=== PATIENT | male | born 1940 | race Two or more races ===

== ENCOUNTER 2024-05-23 14:49 | Outpatient (RCR) | payer OTHER, MEDICAID, SELFPAY | END 2024-06-01 23:59 | disposition home or self-care (01) | LOC: SCTC 14:49 | PROVIDERS: Referring Provider Nurse Practitioner Family; Visit Provider Nurse Practitioner Family | DX: C18.2 Malignant neoplasm of ascending colon (principal); N40.0 Benign prostatic hyperplasia without lower urinary tract symptoms; Z90.79 Acquired absence of other genital organ(s); G20.A1 Parkinson's disease without dyskinesia, without mention of fluctuations; R91.1 Solitary pulmonary nodule | CPT/HCPCS: 99212; G0463 ==

== ENCOUNTER → 2024-05-23 | Outpatient (CLI) | payer OTHER, MEDICAID, SELFPAY ==
[2024-05-23 10:25] LABS: Basophils % (Auto) 1 % (0-2.5); Eosinophils # (Auto) 0.1 Thou/mm3 (0.0-0.5); Eosinophils % (Auto) 1 % (0-10); Hematocrit 46.9 % (41.0-53.0); Hemoglobin 15.7 g/dL (13.5-16.0); Immature Granulocytes % (Auto) 0 % (0-0); Immature Granulocytes Auto 0.02 Thou/mm3 (0.00-0.00); Lymphocytes # (Auto) 1.8 Thou/mm3 (1.0-4.8); Lymphocytes % (Auto) 34 % (10-50); Mean Corpuscular HGB Conc 33.5 g/dl (31.0-37.0); Mean Corpuscular Hemoglobin 32.2 pg (25.0-35.0); Mean Corpuscular Volume 96 fL (80-100); Monocytes # (Auto) 0.5 Thou/mm3 (0.0-0.8); Monocytes % (Auto) 9 % (0-12); Neutrophils # (Auto) 2.9 Thou/mm3 (1.8-7.7); Neutrophils % (Auto) 54 % (37-80); Nucleated Red Blood Cell % 0 /100 WBC (0); Platelet Count 180 Thou/mm3 (140-440); RDW Standard Deviation 46.1 fL (35.1-43.9); Red Blood Count 4.87 Miln/mm3 (4.50-5.90); White Blood Count 5.3 Thou/mm3 (3.8-10.6)
[2024-05-23 10:54] LABS: Prostate Specific Antigen 0.91 ng/mL (0-4.00)
[2024-05-23 11:02] LABS: Alanine Aminotransferase 16 U/L (10-49); Albumin, Serum 4.6 gm/dL (3.4-4.8); Albumin/Globulin Ratio 1.8 (1.2-2.2); Alkaline Phosphatase 74 U/L (46-116); Anion Gap 8 (7-16); Aspartate Amino Transferase 22 U/L (0-34); BUN/Creatinine Ratio 16 Ratio (12-20); Bilirubin,Total 0.8 mg/dL (0.3-1.2); Blood Urea Nitrogen 18 mg/dL (9-23); Calcium 9.7 mg/dL (8.3-10.6); Calcium (Corrected) 9.7 mg/dL (8.5-10.1); Carbon Dioxide 30.1 mMol/L (20.0-31.0); Chloride 101 mMol/L (98-107); Creatinine (Component) 1.1 mg/dL (0.6-1.3); Globulin 2.5 gm/dL (2.3-3.5); Glucose 159 mg/dL (74-106); Osmolality,Calculated 282 (275-295); Potassium 4.5 mMol/L (3.4-5.1); Sodium 139 mMol/L (136-145); Total Protein 7.1 gm/dL (5.7-8.2); eGFR > 60 See Note
== END | disposition home or self-care (01) ==
LOC: SCTO 08:47
PROVIDERS: PCP Family Medicine; Referring Provider Nurse Practitioner Family; Visit Provider Nurse Practitioner Family
DX: C18.2 Malignant neoplasm of ascending colon (principal)
CPT/HCPCS: 36415; 80053; 84153; 85025

== ENCOUNTER → 2024-05-30 | Outpatient (CLI) | payer OTHER, MEDICAID, SELFPAY ==
--- NOTE | 2024-05-30 15:15 | XR_ITS ---
Examination: CT chest, without intravenous contrast. Sagittal and coronal 2-D reconstructions. Exam date and time: May 30, 2024 1529 hours Comparison November 15, 2023 INDICATIONS: Diagnosis malignant neoplasm ascending colon, CT chest November 15, 2023 2 mm pulmonary nodule right upper lobe 2 mm pulmonary nodule left upper lobe 6 mm pulmonary nodule lingular segment CTDI:vol (mGy) 18.8 DLP: (mGycm) 622 Technique: Multiple 3.0 mm axial sections of the chest to been obtained. Bone and lung density settings are obtained. Sagittal and coronal 2-D reconstructions have been obtained. Low dose protocols were performed. One or more of the following dose reduction techniques were used; automated exposure control, adjustment of the mA and/or KV according to patient size, use of iterative reconstruction technique. Findings: AP dimension ascending thoracic aorta 4.1 cm Pulmonary artery segments are not enlarged No paratracheal tracheobronchial or bronchopulmonary adenopathy 3 mm pulmonary nodule left upper lobe Calcified granuloma 4 mm left lower lobe Stable bleb of the anterior right lung 41 mm No interval pneumonia or pulmonary edema Trace pericardial thickening No visualized liver or splenic lesion No gallstones No pancreatic or adrenal mass IMPRESSION: Mild aneurysmal dilatation ascending thoracic aorta No new pulmonary nodules No pneumonia or pulmonary edema
== END | disposition home or self-care (01) ==
PROVIDERS: Referring Provider Nurse Practitioner Family; Visit Provider Nurse Practitioner Family
DX: I71.21 Aneurysm of the ascending aorta, without rupture (principal); C18.2 Malignant neoplasm of ascending colon
CPT/HCPCS: 71250

== ENCOUNTER 2024-06-25 14:45 | Outpatient (RCR) | payer OTHER, MEDICAID, SELFPAY | END 2024-06-29 23:59 | disposition home or self-care (01) | LOC: SCTC 14:45 | PROVIDERS: PCP Family Medicine; Referring Provider Family Medicine; Visit Provider Internal Medicine Hematology & Oncology | DX: R91.8 Other nonspecific abnormal finding of lung field (principal); N40.0 Benign prostatic hyperplasia without lower urinary tract symptoms; G20.A1 Parkinson's disease without dyskinesia, without mention of fluctuations; Z85.038 Personal history of other malignant neoplasm of large intestine; Z90.79 Acquired absence of other genital organ(s) | CPT/HCPCS: 99212; G0463 ==

== ENCOUNTER → 2024-09-19 | Outpatient (CLI) | payer OTHER, MEDICAID, SELFPAY ==
[2024-09-19 16:48] LABS: Basophils % (Auto) 0 % (0-2.5); Eosinophils # (Auto) 0.1 Thou/mm3 (0.0-0.5); Eosinophils % (Auto) 2 % (0-10); Hematocrit 44.9 % (41.0-53.0); Hemoglobin 15.2 g/dL (13.5-16.0); Immature Granulocytes % (Auto) 0 % (0-0); Immature Granulocytes Auto 0.02 Thou/mm3 (0.00-0.00); Lymphocytes # (Auto) 1.6 Thou/mm3 (1.0-4.8); Lymphocytes % (Auto) 29 % (10-50); Mean Corpuscular HGB Conc 33.9 g/dl (31.0-37.0); Mean Corpuscular Hemoglobin 33.1 pg (25.0-35.0); Mean Corpuscular Volume 98 fL (80-100); Monocytes # (Auto) 0.5 Thou/mm3 (0.0-0.8); Monocytes % (Auto) 8 % (0-12); Neutrophils # (Auto) 3.3 Thou/mm3 (1.8-7.7); Neutrophils % (Auto) 60 % (37-80); Nucleated Red Blood Cell % 0 /100 WBC (0); Platelet Count 215 Thou/mm3 (140-440); RDW Standard Deviation 45.8 fL (35.1-43.9); Red Blood Count 4.59 Miln/mm3 (4.50-5.90); White Blood Count 5.5 Thou/mm3 (3.8-10.6)
[2024-09-19 17:08] LABS: Alanine Aminotransferase 15 U/L (10-49); Albumin, Serum 4.3 gm/dL (3.4-4.8); Albumin/Globulin Ratio 1.7 (1.2-2.2); Alkaline Phosphatase 73 U/L (46-116); Anion Gap 11 (7-16); Aspartate Amino Transferase 19 U/L (0-34); BUN/Creatinine Ratio 15 Ratio (12-20); Bilirubin,Total 0.6 mg/dL (0.3-1.2); Blood Urea Nitrogen 16 mg/dL (9-23); Calcium 8.9 mg/dL (8.3-10.6); Calcium (Corrected) 8.9 mg/dL (8.5-10.1); Carbon Dioxide 28.8 mMol/L (20.0-31.0); Chloride 101 mMol/L (98-107); Creatinine (Component) 1.1 mg/dL (0.6-1.3); Globulin 2.5 gm/dL (2.3-3.5); Glucose 178 mg/dL (74-106); Osmolality,Calculated 286 (275-295); Potassium 4.2 mMol/L (3.4-5.1); Sodium 141 mMol/L (136-145); Total Protein 6.8 gm/dL (5.7-8.2); eGFR > 60 See Note
[2024-09-19 17:09] LABS: Carcinoembryonic Antigen 1.6 ng/mL (0.0-5.0)
== END | disposition home or self-care (01) ==
LOC: SCTO 15:06
PROVIDERS: PCP Family Medicine; Referring Provider Nurse Practitioner Family; Visit Provider Nurse Practitioner Family
DX: C18.2 Malignant neoplasm of ascending colon (principal)
CPT/HCPCS: 36415; 80053; 82378; 85025

== ENCOUNTER 2024-09-20 14:51 | Outpatient (RCR) | payer OTHER, MEDICAID, SELFPAY ==
--- NOTE | 2024-09-26 01:36 | CTCFLWUP_ITS ---
Patient: VLADIMIR SZYMANSKI : 1940 Page 5 of 5 FOLLOW UP NOTE DATE OF SERVICE: 09/20/2024 NAME: VLADIMIR SZYMANSKI ACCOUNT: [id number] : 1940 AGE: 84 INTERVAL HISTORY: Patient is doing well with no new complaints CT of chest that was done for surveillance due to history of pulmonary nodules showed no new pulmonary nodules, 05/30/2024. Labs from 05/23/2024 show PSA 0.91, PSA was recommended by previous CT chest abdomen and pelvis/prostate with irregular contour. Patient denies any concerns or complaints. Patient reports good appetite and energy levels. Patient denies cough chest pain weight loss fever, hematuria, any difficulty with urinating. 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 Right distal thigh mass. Aspiration biopsy no evidence of adenocarcinoma (06/28/2018). Prostatomegaly status post robotic simple prostatectomy (10/23/2018). Pathology showed benign prostatic hyperplasia. History of Parkinson's disease. 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 Patient reportedly had colonoscopy done by Dr. Cruz. The report is not available to me at this time. CT scan showed a soft tissue density at the posterior margin of the cecum measuring 5.1 x 4.2 cm in size without any evidence of bowel obstruction. On September 16, 2017 patient underwent right hemicolectomy and ileotransverse colostomy. Pathology specimen showed a 3.5 x 3.0 x 1.0 well differentiated adenocarcinoma of the right colon invading through the muscularis propria into pericolonic tissue. Lymphovascular invasion was present. No perineural invasion was identified. One tumor deposit was noted. 2 out of 25 lymph nodes were positive for metastatic disease. It was staged as PT 3, N1B disease. His posto perative course was uneventful. He is referred to medical oncology for further care. 12/16/2017: Patient had a PET CT scan which showed a focal 18 mm hypermetabolic focus in the rectum. 12/19/2017: CT scan of the chest abdomen and pelvis with IV contrast showed a masslike area 4 cm in size in the mid transverse colon. 02/14/2018: He has recovered very well from the surgery. He is going on vacation today. He will be back in about 3 weeks. 05/11/2018: He decided not to have adjuvant chemo 06/28/2018: Patient had CT-guided percutaneous biopsy/aspiration of soft tissue mass in the right thigh. Pathology did not show any evidence of adenocarcinoma. 10/11/2018: Patient had prostatectomy done at [facility] by Dr. Ren. Pathology showed BPH. 05/08/2018: CEA 1.5. 07/11/2019: CEA 2.2 08/07/2019: CT scan of the chest abdomen and pelvis with contrast? 12/27/2019: CEA 1.8. 05/14/2020: CEA 1.9. 10/13/2020: CT scan of the chest abdomen and pelvis with IV contrast did not show any evidence of metastatic disease 05/19/2021: CEA 1.7. 10/12/2021: CEA 1.3. 03/22/2022: CEA 1.2. 09/07/2022: CT scan of the chest abdomen and pelvis with IV contrast 04/06/2023: CEA 1.3. 05/03/2023: CEA 2.3 05/09/2023: CT of chest abdomen and pelvis with contrast 10/13/2023: CEA 1.3, PSA 0.80 10/14/2023: CT chest with no contrast 01/16/2024: CEA 1.9, PSA 1.05 OTHER MEDICAL HISTORY/CONDITIONS: Parkinson's Diabetes Hypertension FAMILY HISTORY: SOCIAL HISTORY: MEDICATIONS: 1. atorvastatin - 10 mg 1 tab Daily 2. furosemide - 40 mg 1 tab Daily 3. Jardiance - 25 mg 1 tab Daily 4. lisinopril - 2.5 mg 1 tab Daily 5. primidone - 50 mg 1 tab Twice a Day 6. Tylenol Ex Str Arthritis Pain - 500 mg 1 tab As needed Medications Last Reconciled by Rowena Hernández MA on 09/20/2024 ALLERGIES: No Known Drug Allergies REVIEW OF SYSTEMS: A complete 14-point review of systems was performed and is negative except as noted in interval history. PHYSICAL EXAMINATION: VITAL SIGNS: Temperature?98.2, B/P?152/77, Oxygen?Saturation?94% Weight?200?lbs PAIN: 0 - No pain ECOG Performance Status: 1 - Symptomatic; ambulatory; restricted in strenuous activity : 10 - Worst possible pain Neuro: Alert and oriented x 4 Conjunctive is white. CV: Not examined Respiratory: Even unlabored respirations. Extremities: no cyanosis. LABORATORY DATA: I have personally reviewed and interpreted each of the patient?s relevant lab tests, abnormal findings are below: Date 05/23/24 09/19/24 ??WHITE?BLOOD?COUNT?(Thou/mm3) ? 5.5 ??RED?BLOOD?COUNT?(Miln/mm3) ? 4.59 ??HEMOGLOBIN?(gm/dl) ? 15.2 ??HEMATOCRIT?(%) ? 44.9 ??PLATELET?COUNT?(Thou/mm3) ? 215 ??NEUTROPHILS?%,?AUTO?(%) ? 60 ??LYMPH?%,?AUTO?(%) ? 29 ??NEUTROPHILS,?AUTO?(Thou/mm3) ? 3.3 ??GLUCOSE,RANDOM?(mg/dL) 159?H 178?H ??BLOOD?UREA?NITROGEN?(mg/dL) 18 16 ??CREATININE?(mg/dL) 1.10 1.10 ??SODIUM?(mmol/L) 139 141 ??POTASSIUM?(mmol/L) 4.5 4.2 ??CHLORIDE?(mmol/L) 101 101 ??CrCl?(CandG)?(ml/min) 55.37 55.37 ??AST/SGOT?(Unit/L) 22 19 ??ALT/SGPT?(Unit/L) 16 15 ??ALKALINE?PHOSPHATASE?(Unit/L) 74 73 ??BILIRUBIN,?TOTAL?(mg/dL) 0.8 0.6 ??PROTEIN?TOTAL?(gm/dl) 7.1 6.8 ??ALBUMIN,?SERUM?(gm/dl) 4.6 4.3 ??GLOBULIN?(gm/dl) 2.5 2.5 ??ALBUMIN/GLOBULIN?RATIO 1.8 1.7 ??CALCIUM,?SERUM?(mg/dL) 9.7 8.9 ??CALCIUM?SERUM?(CORRECTED)?(mg/dL) 9.7 8.9 ??CEA?(O*)?(ng/ml) ? 1.6 ASSESSMENT/PLAN: 1. 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 Mr. Szymanski declined adjuvant chemotherapy. Right distal thigh mass. Aspiration biopsy no evidence of adenocarcinoma (06/28/2018). Prostatomegaly status post robotic simple prostatectomy (10/23/2018). Pathology showed benign prostatic hyperplasia. PSA level is 0.91, 05/23/2024. History of Parkinson's disease. Denies any complaints, reports good appetite. Stable pulmonary nodule left upper lobe, 4 mm, CT chest without contrast 10/14/2023. CT of chest abdomen and pelvis with IV contrast done on 05/09/2023 shows 2 mm right lung nodule, 4 mm left lung nodule, prostate irregular in contour transverse dimension 4.4 cm, recommend correlation with PSA, recommend 6-month follow-up CT chest without contrast. CT of chest done on 05/30/2024 showed no new pulmonary nodules . Denies any complaints, reports good appetite, energy levels, denies cough, denies weight loss. 2. Continue following up with PCP for chronic conditions. CBC CMP CEA PSA ORDERS: Order # Description [id number] Comprehensive Metabolic Panel - 12 + CBC with Auto Diff + CEA + [id number] Ferritin + Iron Panel + Vitamin B-12 + Folic Acid; Serum + Reticulocyte Count [id number] Follow Up 3 Months [id number] RETURN TO CLINIC: BILLING AND COMPLIANCE: I reviewed external records from providers outside my specialty as summarized above. I spent a total of 50 minutes on this patient?s care on the day of their visit excluding time spent related to any billed procedures. This time includes time spent with the patient as well as time spent documenting in the medical record, reviewing patients records and tests, obtaining history, placing orders, communicating with other healthcare professionals, counseling the patient, family or caregiver, and/or care coordination for the diagnoses above. Electronically Signed by: {Object.Sanct_ID*PnP.NameFL@M}, {Object.Sanct_ID*PnP.Suffix@U} D: {Object.Sanct_Date} T: {Object.Sanct_Time} CC: Vladimir?Chau,?, Sean?Shemar? PCP: Casey Gomez Referring: Casey Gomez This document was completed utilizing speech recognition software. Grammatical errors, random word insertions, pronoun errors, and incomplete sentences are an occasional consequence of this system due to software limitations, ambient noise, and hardware issues. Any formal questions or concerns about the content, text or information contained within the body of this dictation should be directly addressed to the provider for clarification.
== END 2024-09-29 23:59 | disposition home or self-care (01) ==
LOC: SCTC 14:51
PROVIDERS: PCP Family Medicine; Referring Provider Family Medicine; Visit Provider Internal Medicine Hematology & Oncology
DX: C18.2 Malignant neoplasm of ascending colon (principal); R91.8 Other nonspecific abnormal finding of lung field; N40.0 Benign prostatic hyperplasia without lower urinary tract symptoms; Z90.79 Acquired absence of other genital organ(s); G20.A1 Parkinson's disease without dyskinesia, without mention of fluctuations
CPT/HCPCS: 99212; G0463

== ENCOUNTER 2024-10-11 07:02 | Outpatient (RCR) | payer OTHER, MEDICAID, SELFPAY | END 2024-10-29 23:59 | disposition home or self-care (01) | LOC: SCTC 07:02 | PROVIDERS: PCP Family Medicine; Referring Provider Family Medicine; Visit Provider Internal Medicine Hematology & Oncology | DX: C18.2 Malignant neoplasm of ascending colon (principal); R91.8 Other nonspecific abnormal finding of lung field; N40.0 Benign prostatic hyperplasia without lower urinary tract symptoms; Z90.79 Acquired absence of other genital organ(s) | CPT/HCPCS: 36591 ==

== ENCOUNTER 2024-11-09 12:07 | Inpatient (IN) | payer MEDICARE, MEDICAID, SELFPAY ==
[2024-11-09 12:46] VITALS: BP 113/69; PULSE 90; RESP 17; TEMP 36.6; O2SAT 97; BMI 31.7
--- NOTE | 2024-11-09 12:52 | XR_ITS ---
Examination: CT abdomen and pelvis without contrast. Coronal 3-D reconstructions. Sagittal 2-D reconstructions. Date and time of exam:November 09, 2024 1314 hours Comparison November 15, 2023 INDICATIONS: Diagnosis malignant neoplasm ascending colon, 4 days of rectal bleeding CTDI: vol (mGy): 10.6 DLP: (mGycm): 649 Technique: Axial images of the abdomen have been obtained, 3 mm slice thickness Intravenous contrast material has not been administered. Low dose protocols were performed. One or more of the following dose reduction techniques were used; automated exposure control, adjustment of the mA and/or KV according to patient size, use of iterative reconstruction technique. Findings: Atelectasis in the lower lung zone on the right Minimal pericardial thickening No visualized liver or splenic lesion No gallstones No pancreatic or adrenal mass No renal or ureteral calculi, no hydronephrosis Lower pole left renal cyst 16 mm Tiny fat-containing umbilical hernia No bowel obstruction Colonic diverticulosis No diverticulitis Transverse prostate dimension 4.1 cm Urinary bladder wall thickening up to 6 mm Diffuse rectal wall thickening, axial image 201 Prominent osteopenia, advanced disc narrowing L2-L3, L5-S1 IMPRESSION: Diffuse rectal wall thickening, differential would include proctitis, rectal tumor not excluded Recommend direct inspection of the rectum
--- NOTE | 2024-11-09 12:52 | PD.EDRME ---
Rapid Medical Screening Exam RME Arrival date/time: 11/09/24 12:07 84-year-old male with a history of BPH, hypertension, primary adenocarcinoma of the ascending colon, presents to the emergency room with a chief complaint of 4 days of rectal bleeding. Patient states the bleeding began as black and yesterday he began having bright red rectal bleeding. I have greeted and performed a focused initial assessment of this patient. A comprehensive ED assessment and evaluation of the patient, analysis of all test results, and completion of the medical decision making process will be conducted by additional ED providers. Chief Complaint: Urogenital-Male Time Seen by Provider: 11/09/24 12:11 Vital signs: Vital Signs Temperature 97.9 F 11/09/24 12:46 Pulse Rate 90 11/09/24 12:46 Respiratory Rate 17 11/09/24 12:46 Blood Pressure 113/69 11/09/24 12:46 Pulse Oximetry (%) 97 11/09/24 12:46 Oxygen Delivery Method Room Air 11/09/24 12:46 Vital signs reviewed by provider: Yes
[2024-11-09 13:24] LABS: Basophils # (Auto) 0.0 Thou/mm3 (0.0-0.2); Basophils % (Auto) 0 % (0-2.5); Eosinophils # (Auto) 0.1 Thou/mm3 (0.0-0.5); Eosinophils % (Auto) 1 % (0-10); Hematocrit 36.9 % (41.0-53.0); Hemoglobin 12.4 g/dL (13.5-16.0); Immature Granulocytes Auto 0.04 Thou/mm3 (0.00-0.00); Lymphocytes # (Auto) 1.9 Thou/mm3 (1.0-4.8); Lymphocytes % (Auto) 26 % (10-50); Mean Corpuscular HGB Conc 33.6 g/dl (31.0-37.0); Mean Corpuscular Hemoglobin 32.9 pg (25.0-35.0); Mean Corpuscular Volume 98 fL (80-100); Monocytes # (Auto) 0.6 Thou/mm3 (0.0-0.8); Monocytes % (Auto) 8 % (0-12); Neutrophils # (Auto) 4.7 Thou/mm3 (1.8-7.7); Neutrophils % (Auto) 64 % (37-80); Nucleated Red Blood Cell # 0.00 Thou/mm3 (0.00-0.00); Nucleated Red Blood Cell % 0 /100 WBC (0); Platelet Count 172 Thou/mm3 (140-440); RDW Standard Deviation 45.2 fL (35.1-43.9); Red Blood Count 3.77 Miln/mm3 (4.50-5.90); White Blood Count 7.3 Thou/mm3 (3.8-10.6)
[2024-11-09 13:25] LABS: Collection Type, Urine Clean Catch
[2024-11-09 13:35] LABS: Bilirubin,Urine Negative (Negative); Blood,Urine Negative (Negative); Clarity,Urine Clear (Clear/Hazy); Color,Urine Yellow (Lt Yel-Yel); Glucose, Urine 3+ (Negative); Ketones,Urine Negative (Negative); Leukocyte Esterase,Urine Negative (Negative); Nitrite,Urine Negative (Negative); PH,Urine 5.5 (5.0-7.0); Protein,Urine Negative (Neg - Trace); RBC,Urine 1 /hpf (0-3); Specific Gravity,Urine 1.024 (1.001-1.035); Squamous Epithelial Cell,Urine 3 /hpf (0-5); Urobilinogen,Urine Negative mg/dL (0.0-1.0); WBC,Urine 1 /hpf (0-5)
[2024-11-09 13:37] LABS: INR 1.0 (0.9-1.3); Partial Thromboplastin Time 26.6 Seconds (22.0-36.0); Prothrombin Time 10.9 Seconds (9.0-12.2)
[2024-11-09 13:44] LABS: Alanine Aminotransferase 16 U/L (10-49); Albumin, Serum 4.2 gm/dL (3.4-4.8); Albumin/Globulin Ratio 1.8 (1.2-2.2); Alkaline Phosphatase 63 U/L (46-116); Anion Gap 8 (7-16); Aspartate Amino Transferase 17 U/L (0-34); BUN/Creatinine Ratio 24 Ratio (12-20); Bilirubin,Total 0.5 mg/dL (0.3-1.2); Blood Urea Nitrogen 26 mg/dL (9-23); Calcium 9.5 mg/dL (8.3-10.6); Calcium (Corrected) 9.5 mg/dL (8.5-10.1); Carbon Dioxide 27.1 mMol/L (20.0-31.0); Chloride 104 mMol/L (98-107); Creatinine (Component) 1.1 mg/dL (0.6-1.3); Estimated Creatinine Clearance 56.0 mL/min (>60); Globulin 2.4 gm/dL (2.3-3.5); Glucose 205 mg/dL (74-106); Lipase 43 U/L (12-53); Osmolality,Calculated 288 (275-295); Potassium 4.9 mMol/L (3.4-5.1); Sodium 139 mMol/L (136-145); Total Protein 6.6 gm/dL (5.7-8.2); eGFR > 60 See Note
[2024-11-09 14:52] VITALS: BP 109/64; PULSE 76; RESP 18; O2SAT 100
--- NOTE | 2024-11-09 15:08 | PD.EDGIBLD ---
ED GI Bleed RME/HPI General Chief complaint: Urogenital-Male Stated complaint: Bleeding in urine and stool, weak Time Seen by Provider: 11/09/24 12:11 Arrival date/time: 11/09/24 12:07 Limitations: no limitations RME / HPI RME / HPI Narrative: 11/09/24 12:07 84-year-old male with a history of BPH, hypertension, primary adenocarcinoma of the ascending colon, presents to the emergency room with a chief complaint of 4 days of rectal bleeding. Patient states the bleeding began as black and yesterday he began having bright red rectal bleeding. I have greeted and performed a focused initial assessment of this patient. A comprehensive ED assessment and evaluation of the patient, analysis of all test results, and completion of the medical decision making process will be conducted by additional ED providers. DR. BENITEZ MAIN ED EVALUATION: 84 year old male with past medical history of BPH, hypertension, and primary adenocarcinoma of the ascending colon, colon removal surgery due to cancer 4 years ago presents to the Emergency Department with complaint of rectal bleeding, black stools onset 3 days. Stools are loose and black. No dizziness. No abdoinal pain. No fevers or chills. No other symptoms reported at this time. Related Data Home Medications ?Medication ?Instructions ?Recorded ?Confirmed lisinopril 2.5 mg tablet 2.5 mg PO DAILY 12/17/20 12/08/22 primidone 50 mg tablet 50 mg PO BID 12/08/22 12/08/22 Previous Rx's ?Medication ?Instructions ?Recorded docusate sodium 100 mg capsule 100 mg PO BID #40 caps 12/09/22 (Colace) hydrocodone 5 mg-acetaminophen 325 1 tab PO Q6H PRN pain (scale score 12/09/22 mg tablet 7-10) #20 tabs ibuprofen 600 mg tablet 600 mg PO Q8H PRN pain (scale 12/09/22 score 4-6) #15 tabs Allergies Allergy/AdvReac Type Severity Reaction Status Date / Time No Known Allergies Allergy Verified 11/09/24 12:12 Review of Systems Review of Systems Systems Reviewed: All systems reviewed, normal except as documented Past Medical History Past Medical History NEUROLOGIC: Positive Neurological Disorders (minor tremors all over body) CARDIAC: Positive Cardiac Disorders, Hypercholesterolemia and Hypertension (TAKES MED) RESPIRATORY: Positive Pneumonia GASTROINTESTINAL: Positive Gastrointestinal Disorders, Colorectal Cancer (2018), Hemorrhoids (NO SURG), Gastroesophageal Reflux Disease and Obesity GENITOURINARY: Positive Benign Prostatic Hyperplasia ENT: Positive Cataracts (RIGHT) OTHER HISTORY: Positive Radiation Therapy, Cancer and Colorectal Cancer (2018) Family History FAMILY HISTORY: Positive Family Cardiac Disorders (MOTHER (HTN)), Family Cancer (MOTHER (THROAT)) and Family Surgery (FATHER) Surgical History SURGICAL: Positive Abdominal Surgery, Bowel Surgery (colon resection with colostomy, reversal of colostomy) and Transurethral Resection Social History SMOKING STATUS: Never smoker SUBSTANCE USE: does not use ALCOHOL: Never ED Exam General Limitations: Present no limitations General appearance: Present alert and in no apparent distress Head Head exam: Present atraumatic, normocephalic and normal inspection Eye Eye exam: Present normal appearance, PERRL and EOMI ENT ENT exam: Present normal exam, normal oropharynx and mucous membranes moist Neck Neck exam: Present normal inspection, full ROM and trachea midline Chest Chest inspection: Present normal inspection and symmetric chest wall rise Respiratory Respiratory exam: Present normal lung sounds bilaterally Cardiovascular Cardiovascular exam: Present regular rate, normal rhythm and normal heart sounds Abdominal Exam Abdominal exam: Present soft and normal bowel sounds Extremities Exam Extremities exam: Present normal inspection and full ROM Back Exam Back exam: Present normal inspection and full ROM Neurological Exam Neurological exam: Present alert, oriented X3 and CN II-XII intact Psychiatric Psychiatric exam: Present normal affect and normal mood Skin Skin exam: Present warm, dry, intact and normal color Course Quality Measures none Orders Category Date Time Status CT abdomen pelvis wo con Stat Exams 11/09/24 12:52 Completed CBC Stat Lab 11/09/24 13:09 Completed CMP [Comprehensive Metabolic Panel] Stat Lab 11/09/24 13:09 Completed Lipase Stat Lab 11/09/24 13:09 Completed Lipid Panel Stat Lab 11/09/24 13:09 Completed PT [Prothrombin Time with INR] Stat Lab 11/09/24 13:09 Completed PTT [Partial Thromboplastin Time] Stat Lab 11/09/24 13:09 Completed Type and Screen Stat Lab 11/09/24 13:09 Completed UA [Urinalysis] Stat Lab 11/09/24 13:18 Completed Urine Culture Stat Lab 11/09/24 13:18 Received Vital Signs Vital signs: Vital Signs Temperature 97.9 F 11/09/24 12:46 Pulse Rate 90 11/09/24 12:46 Respiratory Rate 17 11/09/24 12:46 Blood Pressure 113/69 11/09/24 12:46 Pulse Oximetry (%) 97 11/09/24 12:46 Oxygen Delivery Method Room Air 11/09/24 12:46 GI Bleed MDM Narrative MDM Narrative:: Prema Cooper, am scribing for and in the presence of Dr. Alvares. Assessment is plan for abdomen/pelvis CT, labs, and admission. CT shows diffuse rectal wall thickening, differential would include proctitis, rectal tumor not excluded. Other differential include lower GI bleed. Patient data External records reviewed:: [facility] previous records Clinical information provided by:: patient Social determinants that could affect healthcare access:: none Patient has the following chronic illnesses:: BPH, hypertension, and primary adenocarcinoma of the ascending colon, colon removal surgery due to cancer 4 years ago. How is presenting disease/condition affected by chronic disease/condition?: caused by Evaluation data The following diagnostics were reviewed and interpreted by me:: lab results and radiology exam(s) Lab and/or radiology exams considered but not ordered:: none Interpretation Summary: Procedure(s): CT abdomen pelvis wo con Accession Number(s): [id number] cc: Gilbert Reyna; Franky Damian MD~ Examination: CT abdomen and pelvis without contrast. Coronal 3-D reconstructions. Sagittal 2-D reconstructions. Date and time of exam:November 09, 2024 1314 hours Comparison November 15, 2023 INDICATIONS: Diagnosis malignant neoplasm ascending colon, 4 days of rectal bleeding CTDI: vol (mGy): 10.6 DLP: (mGycm): 649 Technique: Axial images of the abdomen have been obtained, 3 mm slice thickness Intravenous contrast material has not been administered. Low dose protocols were performed. One or more of the following dose reduction techniques were used; automated exposure control, adjustment of the mA and/or KV according to patient size, use of iterative reconstruction technique. Findings: Atelectasis in the lower lung zone on the right Minimal pericardial thickening No visualized liver or splenic lesion No gallstones No pancreatic or adrenal mass No renal or ureteral calculi, no hydronephrosis Lower pole left renal cyst 16 mm Tiny fat-containing umbilical hernia No bowel obstruction Colonic diverticulosis No diverticulitis Transverse prostate dimension 4.1 cm Urinary bladder wall thickening up to 6 mm Diffuse rectal wall thickening, axial image 201 Prominent osteopenia, advanced disc narrowing L2-L3, L5-S1 IMPRESSION: Diffuse rectal wall thickening, differential would include proctitis, rectal tumor not excluded Recommend direct inspection of the rectum Dictated By: Franky Damian MD Medications / Prescriptions Medications or Prescriptions considered but not ordered:: none Medication administrations:: Medication Administration History Acetaminophen (Acetaminophen 325 Mg Tablet) 650 mg PO Q6HR PRN PRN Reason: PAIN OR FEVER > 101 Stop: 12/09/24 16:50 Ondansetron HCl (Ondansetron Inj 2 Mg/Ml Inj 2 Ml) 4 mg IVP Q6HR PRN; Protocol PRN Reason: NAUSEA OR VOMITING Stop: 12/09/24 16:51 Pantoprazole Sodium (Pantoprazole Inj 40 Mg Vial) 40 mg IVP BID TORITO Stop: 12/10/24 08:59 Discontinued Medications Pantoprazole Sodium (Protonix/Ns 80mg Iv Premix) 80 mg in 100 mls @ 400 mls/hr IV X1 ONE Stop: 11/09/24 17:08 Pantoprazole Sodium (Pantoprazole Inj 40 Mg Vial) 80 mg IVP X1 ONE Stop: 11/09/24 17:01 see above if any Consultations Consultation(s) initiated? (list below): Yes Consultation #1 (Physician, Specialty, Details): Discussed test HPI, PMHx, lab, radiology results and/or management with resident working with the hospitalist. Will admit for further evaluation and management. Accepts patient for admission. Time: 15:16 Diagnosis GI bleed differential diagnosis: Lower gastrointestinal hemorrhage, hematochezia, anal fissure and other (proctitis, rectal tumor) Most likely diagnosis given after review of the tests above:: lower GI bleed most likely indication of colon cancer Admission Indicated Admission indicated?: indicated Admission Request Was there a request for admission?: Yes Admission Attestation Admission request attestation: Discussed case with [] from Hospitalist service regarding admission. Discussed patients ED course, exam findings, labs, and radiology results. The Hospitalist [agrees,declines] to accept the patient for admission. Disposition Plan Disposition Plan: Admit Discharge Plan Plan Patient Disposition: Admit Acute Care w/in Hospital Problem List Clinical Impression: Lower GI bleed Impression comment: lower GI bleed most likely indication of colon cancer
[2024-11-09 16:22] VITALS: BP 130/76; PULSE 73; RESP 20; TEMP 36.6; O2SAT 97
[2024-11-09 17:09] LABS: Cardiac Risk Estimate 2.9 RATIO (4.0-6.7); Cholesterol 120 mg/dL (132-200); HDL Cholesterol 42 mg/dL (40-60); LDL Cholesterol,Calculated 36 mg/dL (0-130); Triglycerides 209 mg/dL (30-150)
--- NOTE | 2024-11-09 17:10 | PD.RESHP ---
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 Curtis), prostamegaly status post prostatectomy 2018, Parkinson's disease, inferior wall [place], history of hemorrhoids who presented to the ED on 11/09/2024 with 4 days of bloody stools. Patient's son provided translation. Per son, he reports that initially stools were black then slowly had bright red blood with bowel movements. He follows Dr. Thakkar regularly last visit per chart review was August 2024. She is also following him for pulmonary nodules and BPH. Patient denies taking iron pills. He is not on any blood thinners or anticoagulants. Denies fever, chest pain, shortness of breath, abdominal pain, urinary problems, and rectal pain. GI Dr. Paredes was consulted. ED Course: -Initial vitals: BP 113/69 HR 90 RR 17 temp 97.9 ?F, saturating 97% on room air -Labs significant for WBC 7.3, hemoglobin 12.4, BUN 26, glucose 205 -Imaging included CT abdomen pelvis without contrast showed diffuse rectal wall thickening, suspicious for proctitis or rectal tumor -Patient was admitted for acute lower GI bleed likely secondary to history of colon cancer. Review of systems otherwise negative except what is mentioned above. Past Medical History: As above including type 2 diabetes, hypertension, pulmonary nodules Surgical History: Mass removal of right thigh in 2022, cataract surgery, colon resection and anastomosis, cardiac cath in 2018 Social History: Smoked 30 years ago, drinks beer occasionally, denies recreational drug use Current Medications: Atorvastatin 10 mg daily, Jardiance 25 mg daily, lisinopril 2.5 mg daily, Tylenol as needed 500 mg, primidone 50 mg daily, unclear if patient is still taking furosemide 40 mg (Source: Per chart review) Allergies: No known drug allergies Exam Vital Signs Temp Pulse Resp BP Pulse Ox O2 Del Method 97.9 F 73 20 130/76 97 Room Air 11/09/24 16:22 11/09/24 16:22 11/09/24 16:22 11/09/24 16:22 11/09/24 16:22 11/09/24 16:22 Narrative Exam Physical Exam General: Awake and in no acute distress. Conversational and non-toxic appearing. Mild tremors in bilateral upper extremities at baseline. HEENT: Normocephalic, atraumatic, mucous membranes moist. Heart: Regular rate and rhythm, normal S1 and S2, no murmurs. Lungs: Clear to auscultation with no wheezing or crackles. Abdomen: Soft, nondistended, nontender, positive bowel sounds. No guarding or rebound tenderness. Neurologic: Alert and oriented x3, no gross neurological deficit, and patient able to move all 4 extremities. Extremities: No lower extremity edema bilaterally. Skin: No rash or ecchymoses. Discoloration of lower extremities, likely stasis dermatitis or chronic venous insufficiency. Results: Labs 11/10/24 05:21 11/10/24 05:21 Labs: Short CBC 11/09/24 Range/Units 13:09 WBC 7.3 (3.8-10.6) Thou/mm3 Hgb 12.4 L (13.5-16.0) g/dL Hct 36.9 L (41.0-53.0) % Plt Count 172 (140-440) Thou/mm3 BMP 11/09/24 13:09 Sodium 139 Potassium 4.9 Chloride 104 Carbon Dioxide 27.1 BUN 26 H Creatinine 1.1 Glucose 205 H Calcium 9.5 Liver Function 11/09/24 Range/Units 13:09 Total Bilirubin 0.5 (0.3-1.2) mg/dL AST 17 (0-34) U/L ALT 16 (10-49) U/L Alkaline Phosphatase 63 (46-116) U/L Albumin 4.2 (3.4-4.8) gm/dL Urine 11/09/24 Range/Units 13:18 Urine Color Yellow (Lt Yel-Yel) Urine Clarity Clear (Clear/Hazy) Urine pH 5.5 (5.0-7.0) Ur Specific [place] 1.024 (1.001-1.035) Urine Protein Negative (Neg - Trace) Urine Glucose (UA) 3+ A (Negative) Quality Measures Quality Measures none Advance care planning discussed with:: patient Medications Home Medications and Allergies Home Medications ?Medication ?Instructions ?Recorded ?Confirmed ?Type lisinopril 2.5 mg tablet 2.5 mg PO DAILY 12/17/20 12/08/22 History primidone 50 mg tablet 50 mg PO BID 12/08/22 12/08/22 History Allergies Allergy/AdvReac Type Severity Reaction Status Date / Time No Known Allergies Allergy Verified 11/09/24 12:12 Visit Medications Acetaminophen (Acetaminophen 325 Mg Tablet) 650 mg PO Q6HR PRN PRN Reason: PAIN OR FEVER > 101 Stop: 12/09/24 16:50 Ondansetron HCl (Ondansetron Inj 2 Mg/Ml Inj 2 Ml) 4 mg IVP Q6HR PRN; Protocol PRN Reason: NAUSEA OR VOMITING Stop: 12/09/24 16:51 Pantoprazole Sodium (Pantoprazole Inj 40 Mg Vial) 40 mg IVP BID TORITO Stop: 12/10/24 08:59 Discontinued Medications Pantoprazole Sodium (Protonix/Ns 80mg Iv Premix) 80 mg in 100 mls @ 400 mls/hr IV X1 ONE Stop: 11/09/24 17:08 Pantoprazole Sodium (Pantoprazole Inj 40 Mg Vial) 80 mg IVP X1 ONE Stop: 11/09/24 17:01 Assessment & Plan Plan Patient is a 84 year-old male with past medical history of malignant neoplasm of the ascending colon status post partial resection and anastomosis (not on adjuvant chemo, following Dr. Curtis), prostamegaly status post prostatectomy 2018, inferior wall [place], and history of hemorrhoids who presented to the ED on 11/09/2024 with 4 days of bloody stools. Admitted for workup of lower GI bleed and acute anemia secondary to above. #Acute anemia secondary to #Lower GI bleed #history of malignant neoplasm of descending colon status post partial resection and anastomosis #History of hemorrhoids, s/p hemorrhoidectomy Hemoglobin on admission was 12.4, baseline 15.2. Acute blood loss likely secondary to lower GI bleed which is likely secondary to patient's cancer history. CT abdomen pelvis 11/09 noted diffuse rectal wall thickening, differential would include proctitis, rectal tumor not excluded. Patient is not on chemotherapy or radiation. ? GI consulted, appreciate recommendations ? Possible colonoscopy - NPO for now, pending consult ?Transfuse if hemoglobin less than 7. #History of hypertension Patient takes lisinopril at home, unclear if patient still takes furosemide. Pending med rec. Patient is normotensive at this time. ? Hold anti-hypertensives for now ? Consider restarting if patient comes hypertensive #History of pulmonary nodules Patient is following oncologist Dr. Curtis. CT chest that was done for surveillance due to history of pulmonary nodules showed no new pulmonary nodules, 05/30/2024. Currently stable. ? Defer management outpatient with oncology #BPH Status post prostatectomy in 2019. Labs from 05/23/2024 show PSA 0.91, PSA was recommended by previous CT chest abdomen and pelvis/prostate with irregular contour. Oncology following PSA. Patient denies trouble urinating at this time. ?Defer management outpatient with oncology #History of Parkinson disease Patient has tremors in upper extremities bilaterally at baseline. Takes Primidone 50 mg twice daily at home. Managed by PCP. Patient does not see neurologist. ? Continue home dose Primidone #Type 2 diabetes Patient is taking Jardiance at home. ?Hold Jardiance ? Started on SSI Health Maintenance Disposition: Pending colonoscopy, lower GI bleed workup DVT prophylaxis: None needed, patient is ambulatory GI prophylaxis: Protonix Diet: N.p.o. for now, consider low carb consistent diet CODE STATUS: Full Patient plan of care was discussed with the senior resident, Dr. Browning, and attending physician, Dr. Zamudio. Danica Anton, PGY-1 Attending Provider Attestation/Addendum 84-year-old male with history of colon adenocarcinoma status post partial resection, prostatomegaly status post prostatectomy, Parkinson's disease who presented to the ER on 11/09/2024 with complaints of bright red blood per rectum and subsequently admitted for acute anemia secondary to lower GI bleed secondary to possible malignancy. Plan to admit the patient to telemetry and consult GI for possible colonoscopy.I reviewed above note and agree with findings and plans. I have also personally examined the patient with medicine team and went over assessment and plan with medical team including trestle mainternance laborer and resident physician.
[2024-11-09 18:22] VITALS: BP 111/52; PULSE 75; RESP 20; TEMP 36.8; O2SAT 95
[2024-11-09 19:31] VITALS: BMI 32.3
[2024-11-09 20:00] VITALS: BP 136/89; PULSE 72; RESP 15; TEMP 36.4; O2SAT 96
--- NOTE | 2024-11-09 20:52 | PD.IMCONS ---
HPI Data of Consult Requesting Physician: Sherice Zamudio MD Primary Care Provider: Physician No Primary/Family Consult Narrative Reason for consult: Rectal bleeding History of present illness: 84 years old male asked by the internal medicine to evaluate by me for episodes of rectal bleeding Started 4 days ago initially it was dark color now it is bright red blood Patient does have a history of a ascending colon carcinoma requiring surgical resection and currently not on any chemotherapy did not get any chemotherapy at the patient's request after surgical intervention He is being followed by our local oncologist Patient does have a history of BPH requiring surgical intervention essential hypertension and Parkinson's disease CT scan of the abdomen pelvis without contrast showed rectal wall thickening and symptoms consistent with proctitis cc:: cc: Sherice Zamudio MD Review of Systems Review of Systems Systems Reviewed: All systems reviewed, normal except as documented Past Medical History Surgical History OTHER SURGICAL HX: As in the history of present illness Meds Home Medications and Allergies Home Medications ?Medication ?Instructions ?Recorded ?Confirmed ?Type lisinopril 2.5 mg tablet 2.5 mg PO DAILY 12/17/20 12/08/22 History primidone 50 mg tablet 50 mg PO BID 12/08/22 12/08/22 History Allergies Allergy/AdvReac Type Severity Reaction Status Date / Time No Known Allergies Allergy Verified 11/09/24 12:12 Exam Vital Signs Temp Pulse Resp BP Pulse Ox O2 Del Method 98.2 F 75 20 111/52 L 95 Room Air 11/09/24 18:22 11/09/24 18:22 11/09/24 18:22 11/09/24 18:22 11/09/24 18:22 11/09/24 18:22 Constitutional Comments: Alert oriented and Chinese-speaking Routine Respiratory Exam Comments: Normal to auscultation Routine Abdominal Exam Comments: Soft nontender Results Labs 11/09/24 13:09 11/09/24 13:09 Labs: Short CBC 11/09/24 Range/Units 13:09 WBC 7.3 (3.8-10.6) Thou/mm3 Hgb 12.4 L (13.5-16.0) g/dL Hct 36.9 L (41.0-53.0) % Plt Count 172 (140-440) Thou/mm3 BMP 11/09/24 13:09 Sodium 139 Potassium 4.9 Chloride 104 Carbon Dioxide 27.1 BUN 26 H Creatinine 1.1 Glucose 205 H Calcium 9.5 Liver Function 11/09/24 Range/Units 13:09 Total Bilirubin 0.5 (0.3-1.2) mg/dL AST 17 (0-34) U/L ALT 16 (10-49) U/L Alkaline Phosphatase 63 (46-116) U/L Albumin 4.2 (3.4-4.8) gm/dL Urine 11/09/24 Range/Units 13:18 Urine Color Yellow (Lt Yel-Yel) Urine Clarity Clear (Clear/Hazy) Urine pH 5.5 (5.0-7.0) Ur Specific [place] 1.024 (1.001-1.035) Urine Protein Negative (Neg - Trace) Urine Glucose (UA) 3+ A (Negative) Assessment and Plan Additional Assessment & Plan Additional Plan: # Hematochezia initially as melanotic stools Plan Clear liquid diet GoLytely prep Consent obtained for fiberoptic colonoscopy with possible biopsy possible therapeutic intervention under intravenous moderate sedation in the presence of his daughter who works here as well as the son CEA level Will follow the patient Other medical problems include Ascending colon carcinoma status post primary resection and anastomosis BPH status post prostatic surgery most likely TURP Parkinson's disease Essential hypertension Thank you very much for the opportunity to participate in the care of this patient
--- NOTE | 2024-11-09 21:09 | PC.NURSE ---
Pt does not remember home medications. Med rec not completed at this time. Pt kate Zimmerman will provide them in the morning. I will pass this off to the day shift nurse.
[2024-11-09] MEDS: NA SU/NAHCO3/KC/PEG (Golytely) 4,000 ML BTL 4000 ML PO (21:12)
[2024-11-09] MEDS: ATORVASTATIN CALCIUM 10 MG TABLET PO (21:13)
[2024-11-09] MEDS: PRIMIDONE 50 MG TABLET PO (21:13)
[2024-11-10] VITALS (20 sets, daily range): BP systolic 94–148; BP diastolic 51–80; PULSE 64–96; RESP 11–18; TEMP 36.1–36.7; O2SAT 93–100; BMI 32.3
[2024-11-10 06:34] LABS: Basophils # (Auto) 0.0 Thou/mm3 (0.0-0.2); Basophils % (Auto) 1 % (0-2.5); Eosinophils # (Auto) 0.1 Thou/mm3 (0.0-0.5); Eosinophils % (Auto) 1 % (0-10); Hematocrit 30.9 % (41.0-53.0); Hemoglobin 10.7 g/dL (13.5-16.0); Immature Granulocytes Auto 0.03 Thou/mm3 (0.00-0.00); Lymphocytes # (Auto) 2.0 Thou/mm3 (1.0-4.8); Lymphocytes % (Auto) 42 % (10-50); Mean Corpuscular HGB Conc 34.6 g/dl (31.0-37.0); Mean Corpuscular Hemoglobin 32.8 pg (25.0-35.0); Mean Corpuscular Volume 95 fL (80-100); Monocytes # (Auto) 0.5 Thou/mm3 (0.0-0.8); Monocytes % (Auto) 10 % (0-12); Neutrophils # (Auto) 2.2 Thou/mm3 (1.8-7.7); Neutrophils % (Auto) 46 % (37-80); Nucleated Red Blood Cell # 0.00 Thou/mm3 (0.00-0.00); Nucleated Red Blood Cell % 0 /100 WBC (0); Platelet Count 151 Thou/mm3 (140-440); RDW Standard Deviation 44.4 fL (35.1-43.9); Red Blood Count 3.26 Miln/mm3 (4.50-5.90); White Blood Count 4.8 Thou/mm3 (3.8-10.6)
[2024-11-10 06:40] LABS: Glucose Estimated Average 194 mg/dL (80-131); Hemoglobin A1C 8.4 % Hgb (4.8-6.0)
[2024-11-10 07:04] LABS: Alanine Aminotransferase 16 U/L (10-49); Albumin, Serum 3.7 gm/dL (3.4-4.8); Albumin/Globulin Ratio 1.9 (1.2-2.2); Alkaline Phosphatase 51 U/L (46-116); Anion Gap 9 (7-16); Aspartate Amino Transferase 19 U/L (0-34); BUN/Creatinine Ratio 20 Ratio (12-20); Bilirubin,Total 0.7 mg/dL (0.3-1.2); Blood Urea Nitrogen 20 mg/dL (9-23); Calcium 8.6 mg/dL (8.3-10.6); Calcium (Corrected) 8.8 mg/dL (8.5-10.1); Carbon Dioxide 27.6 mMol/L (20.0-31.0); Chloride 104 mMol/L (98-107); Creatinine (Component) 1.0 mg/dL (0.6-1.3); Estimated Creatinine Clearance 61.0 mL/min (>60); Globulin 2.0 gm/dL (2.3-3.5); Glucose 165 mg/dL (74-106); Magnesium 2.1 mg/dL (1.6-2.6); Osmolality,Calculated 287 (275-295); Phosphorous 3.0 mg/dL (2.4-5.1); Potassium 4.3 mMol/L (3.4-5.1); Sodium 141 mMol/L (136-145); Total Protein 5.7 gm/dL (5.7-8.2); eGFR > 60 See Note
[2024-11-10] MEDS: PRIMIDONE 50 MG TABLET PO ×2 (08:20→21:03)
--- NOTE | 2024-11-10 13:23 | ESPR_ITS ---
<Statement entered by Sherice Zamudio MD - 11/19/24 14:16> I reviewed above note and agree with findings and plans. I have also personally examined the patient with medicine team and went over assessment and plan with medical team including sourcing internship and resident physician. Documentation for date of: 11/10/24 Subjective Subjective Interval history: No acute events overnight. Patient seen and examined at bedside this AM. Son was present in room. Had bowel movement last night, non bloody; however previous 2 bowel movements yesterday had bright red blood. Denies chest pain, shortness of breath, palpitations, abdominal pain, and rectal pain. Had edema in legs, recommended that patient keep feet elevated when sitting or laying in bed. Encouraged ambulation. Labs and vitals were reviewed. Vitals are stable. Hemoglobin dropped to 10.7 from 12.4. Consulted GI Dr. Paredes yesterday, started on clear liquid diet and GoLytely prep. Completed this morning, pending colonoscopy today. Consider surgical evaluation if hemoglobin continues to drop significantly. Type and screen completed, CBC tonight to recheck hgb after procedure. CEA still pending. A1c 8.4, on insulin sliding scale. Lipid panel 11/09 shows trig 209 and LDL 36, continuing home statin. Review of systems otherwise negative except what is mentioned above. Exam Vital Signs Temp Pulse Resp BP Pulse Ox O2 Del Method 97.1 F 64 18 98/68 95 Room Air 11/10/24 08:00 11/10/24 08:00 11/10/24 08:00 11/10/24 08:00 11/10/24 08:00 11/10/24 08:00 Narrative Exam Physical Exam General: Awake and in no acute distress. Conversational and non-toxic appearing. Mild tremors in bilateral upper extremities at baseline. HEENT: Normocephalic, atraumatic, mucous membranes moist. Heart: Regular rate and rhythm, normal S1 and S2, no murmurs. Lungs: Clear to auscultation with no wheezing or crackles. Abdomen: Soft, nondistended, nontender, positive bowel sounds. No guarding or rebound tenderness. Neurologic: Alert and oriented x3, no gross neurological deficit, and patient able to move all 4 extremities. Extremities: 2+ pitting lower extremity edema bilaterally. Skin: No rash or ecchymoses. Discoloration of lower extremities, likely stasis dermatitis or chronic venous insufficiency. Objective Labs 11/10/24 05:21 11/10/24 05:21 Labs: Laboratory Results - last 24 hr 11/09/24 11/09/24 11/10/24 13:09 13:18 05:21 WBC 7.3 4.8 RBC 3.77 L 3.26 L Hgb 12.4 L 10.7 L Hct 36.9 L 30.9 L MCV 98 95 MCH 32.9 32.8 MCHC 33.6 34.6 RDW Std Deviation 45.2 H 44.4 H Plt Count 172 151 Neut % (Auto) 64 46 Lymph % (Auto) 26 42 [place] % (Auto) 8 10 Eos % (Auto) 1 1 Baso % (Auto) 0 1 Neut # (Auto) 4.7 2.2 Lymph # (Auto) 1.9 2.0 [place] # (Auto) 0.6 0.5 Eos # (Auto) 0.1 0.1 Baso # (Auto) 0.0 0.0 Immature Gran # (Auto) 0.04 H 0.03 H Absolute Nucleated RBC 0.00 0.00 Immature Gran % 1 H 1 H Nucleated RBC % 0 0 PT 10.9 INR 1.0 APTT 26.6 Sodium 139 141 Potassium 4.9 4.3 D Chloride 104 104 Carbon Dioxide 27.1 27.6 Anion Gap 8 9 BUN 26 H 20 Creatinine 1.1 1.0 Estim Creat Clear Calc 56.0 L 61.0 eGFR > 60 > 60 BUN/Creatinine Ratio 24 H 20 Glucose [address] Glu mg/dL 194 H Hemoglobin A1c 8.4 H Calculated Osmolality 288 287 Calcium 9.5 8.6 Corrected Calcium 9.5 8.8 Phosphorus 3.0 Magnesium 2.1 Total Bilirubin 0.5 0.7 AST 17 19 ALT 16 16 Alkaline Phosphatase 63 51 Total Protein 6.6 5.7 Albumin 4.2 3.7 D Globulin 2.4 2.0 L Albumin/Globulin Ratio 1.8 1.9 Triglycerides 209 H Cholesterol 120 L LDL Cholesterol, Calc 36 HDL Cholesterol 42 Cholesterol/HDL Ratio 2.9 L Lipase 43 Ur Collection Type Clean Catch Urine Color Yellow Urine Clarity Clear Urine pH 5.5 Ur Specific [place] 1.024 Urine Protein Negative Urine Glucose (UA) 3+ A Urine Ketones Negative Urine Blood Negative Urine Nitrite Negative Urine Bilirubin Negative Urine Urobilinogen (Auto) Negative Ur Leukocyte Esterase Negative Urine RBC 1 Urine WBC 1 Ur Squamous Epith Cells 3 Urine Bacteria None Blood Type O Positive Antibody Screen NEGATIVE Blood Bank Wristband ID Yes Quality Measures Quality Measures none Advance care planning discussed with:: patient Assessment & Plan Assessment Current Active Medications: Generic Name Dose Route Start Last Admin Trade Name Freq PRN Reason Stop Dose Admin Acetaminophen 650 mg 11/09/24 16:51 Acetaminophen 325 Mg Tablet PO 12/09/24 16:50 Q6HR PRN PAIN OR FEVER > 101 Atorvastatin Calcium 10 mg 11/09/24 21:00 11/09/24 21:13 Atorvastatin Calcium 10 Mg Tablet PO 12/09/24 20:59 10 mg HS TORITO Administration Dextrose 25 ml 11/09/24 20:03 Dextrose 50%-Water Inj 50 Ml Syringe IV 12/09/24 20:02 Q15MIN PRN BG 50-70 responsive npo pt Dextrose 50 ml 11/09/24 20:03 Dextrose 50%-Water Inj 50 Ml Syringe IV 12/09/24 20:02 Q15MIN PRN BG <50 OR BG <70 & pt unresponsive Glucagon 1 mg 11/09/24 20:03 Glucagon Inj 1 Mg Vial IM Q15MIN PRN BG <70, and no IV access Insulin Human Lispro 0 unit 11/09/24 20:15 11/10/24 12:29 Insulin Lispro (Admelog) 1 Unit/0.01 Ml Unit SC 12/09/24 20:14 Not Given Q6HR TORITO Protocol Ondansetron HCl 4 mg 11/09/24 16:52 Ondansetron Inj 2 Mg/Ml Inj 2 Ml IVP 12/09/24 16:51 Q6HR PRN NAUSEA OR VOMITING Protocol Pantoprazole Sodium 40 mg 11/10/24 09:00 11/10/24 08:20 Pantoprazole Inj 40 Mg Vial IVP 12/10/24 08:59 40 mg BID TORITO Administration Primidone 50 mg 11/09/24 21:00 11/10/24 08:20 Primidone 50 Mg Tablet PO 11/14/24 20:59 50 mg BID TORITO Administration Plan Patient is a 84 year-old male with past medical history of malignant neoplasm of the ascending colon status post partial resection and anastomosis (not on adjuvant chemo, following Dr. Curtis), prostamegaly status post prostatectomy 2018, inferior wall [place], and history of hemorrhoids who presented to the ED on 11/09/2024 with 4 days of bloody stools. Admitted for workup of lower GI bleed and acute anemia secondary to above. #Acute anemia secondary to #Lower GI bleed #history of malignant neoplasm of descending colon status post partial resection and anastomosis #History of hemorrhoids, s/p hemorrhoidectomy Hemoglobin on admission was 12.4, baseline 15.2. Acute blood loss likely secondary to lower GI bleed which is likely secondary to patient's cancer history. CT abdomen pelvis 11/09 noted diffuse rectal wall thickening, differential would include proctitis, rectal tumor not excluded. Patient is not on chemotherapy or radiation. CEA pending. Type and screen complete. ? GI consulted, appreciate recommendations ? pending colonoscopy - clear liquid diet, now npo ?Transfuse if hemoglobin less than 8. - Consider surgery consultation depending on colonoscopy results or if bleeding worsens #History of hypertension Patient takes lisinopril at home, unclear if patient still takes furosemide. Pending med rec. Patient is normotensive at this time. ? Hold anti-hypertensives for now ? Consider restarting if patient comes hypertensive #Peripheral edema #Venous stasis Had cardiac cath in August 2018 for angina pectoris and abnormal nuclear scan that showed left inferior ischemia; however Left ventricular angiography showed normal left ventricular wall motion, ejection fraction 60-70%. No history of heart failure or DVT. Follows Dr. Santillan. Per chart review, patient was previously on furosemide 40 mg daily, however patient not currently taking. - Consider restarting if edema worsens - instructed to keep feet elevated when sitting or in bed - encouraged frequent ambulation #History of pulmonary nodules Patient is following oncologist Dr. Curtis. CT chest that was done for surveillance due to history of pulmonary nodules showed no new pulmonary nodules, 05/30/2024. Currently stable. ? Defer management outpatient with oncology #BPH Status post prostatectomy in 2019. Labs from 05/23/2024 show PSA 0.91, PSA was recommended by previous CT chest abdomen and pelvis/prostate with irregular contour. Oncology following PSA. Patient denies trouble urinating at this time. ?Defer management outpatient with oncology #History of Parkinson disease Tremors in upper extremities bilaterally at baseline. Takes Primidone 50 mg twice daily at home. Managed by PCP. Patient does not see neurologist. ? Continue home dose Primidone #Type 2 diabetes Patient is taking Jardiance at home. A1c 8.4. ?Hold Jardiance ? Started on SSI Health Maintenance Disposition: Pending colonoscopy, acute lower GI bleed DVT prophylaxis: None needed, patient is ambulatory GI prophylaxis: Protonix Diet: N.p.o. for now, consider low carb consistent diet CODE STATUS: Full Patient plan of care was discussed with the attending physician, Dr. Zamudio. Danica Anton, PGY-1
--- NOTE | 2024-11-10 14:45 | PC.OT ---
Patient transported to colonoscopy procedure via ghazalarervin maher RNNatividad. Patient awake, alert and oriented with no signs of acute distress.
--- NOTE | 2024-11-10 16:03 | SUR.PHASEI ---
1602 To PACU awake and alert, able to lift head off of pillow following simple commands continue to monitor pt vital signs and status.
--- NOTE | 2024-11-10 16:37 | SUR.PHASEI ---
1635 Transfer to room 370 in stable condition awake and alert , no complaints no s/s of distress noted.
[2024-11-10] MEDS: ATORVASTATIN CALCIUM 10 MG TABLET PO (21:03)
[2024-11-10 21:12] LABS: Basophils # (Auto) 0.0 Thou/mm3 (0.0-0.2); Basophils % (Auto) 0 % (0-2.5); Eosinophils # (Auto) 0.1 Thou/mm3 (0.0-0.5); Eosinophils % (Auto) 1 % (0-10); Hematocrit 32.2 % (41.0-53.0); Hemoglobin 11.3 g/dL (13.5-16.0); Immature Granulocytes Auto 0.03 Thou/mm3 (0.00-0.00); Lymphocytes # (Auto) 1.9 Thou/mm3 (1.0-4.8); Lymphocytes % (Auto) 19 % (10-50); Mean Corpuscular HGB Conc 35.1 g/dl (31.0-37.0); Mean Corpuscular Hemoglobin 32.9 pg (25.0-35.0); Mean Corpuscular Volume 94 fL (80-100); Monocytes # (Auto) 0.8 Thou/mm3 (0.0-0.8); Monocytes % (Auto) 8 % (0-12); Neutrophils # (Auto) 7.1 Thou/mm3 (1.8-7.7); Neutrophils % (Auto) 72 % (37-80); Nucleated Red Blood Cell # 0.00 Thou/mm3 (0.00-0.00); Nucleated Red Blood Cell % 0 /100 WBC (0); Platelet Count 156 Thou/mm3 (140-440); RDW Standard Deviation 44.2 fL (35.1-43.9); Red Blood Count 3.43 Miln/mm3 (4.50-5.90); White Blood Count 10.0 Thou/mm3 (3.8-10.6)
[2024-11-11] VITALS (13 sets, daily range): BP systolic 101–135; BP diastolic 52–74; PULSE 65–83; RESP 13–20; TEMP 36.1–36.6; O2SAT 92–99
[2024-11-11 06:29] LABS: Basophils # (Auto) 0.0 Thou/mm3 (0.0-0.2); Basophils % (Auto) 0 % (0-2.5); Eosinophils # (Auto) 0.1 Thou/mm3 (0.0-0.5); Eosinophils % (Auto) 1 % (0-10); Hematocrit 32.3 % (41.0-53.0); Hemoglobin 10.9 g/dL (13.5-16.0); Immature Granulocytes Auto 0.02 Thou/mm3 (0.00-0.00); Lymphocytes # (Auto) 1.5 Thou/mm3 (1.0-4.8); Lymphocytes % (Auto) 26 % (10-50); Mean Corpuscular HGB Conc 33.7 g/dl (31.0-37.0); Mean Corpuscular Hemoglobin 32.3 pg (25.0-35.0); Mean Corpuscular Volume 96 fL (80-100); Monocytes # (Auto) 0.5 Thou/mm3 (0.0-0.8); Monocytes % (Auto) 8 % (0-12); Neutrophils # (Auto) 3.7 Thou/mm3 (1.8-7.7); Neutrophils % (Auto) 64 % (37-80); Nucleated Red Blood Cell # 0.00 Thou/mm3 (0.00-0.00); Nucleated Red Blood Cell % 0 /100 WBC (0); Platelet Count 158 Thou/mm3 (140-440); RDW Standard Deviation 44.2 fL (35.1-43.9); Red Blood Count 3.37 Miln/mm3 (4.50-5.90); White Blood Count 5.7 Thou/mm3 (3.8-10.6)
[2024-11-11 07:11] LABS: Alanine Aminotransferase 17 U/L (10-49); Albumin, Serum 3.9 gm/dL (3.4-4.8); Albumin/Globulin Ratio 1.8 (1.2-2.2); Alkaline Phosphatase 57 U/L (46-116); Anion Gap 11 (7-16); Aspartate Amino Transferase 23 U/L (0-34); BUN/Creatinine Ratio 13 Ratio (12-20); Bilirubin,Total 0.7 mg/dL (0.3-1.2); Blood Urea Nitrogen 13 mg/dL (9-23); Calcium 8.7 mg/dL (8.3-10.6); Calcium (Corrected) 8.8 mg/dL (8.5-10.1); Carbon Dioxide 26.8 mMol/L (20.0-31.0); Chloride 104 mMol/L (98-107); Creatinine (Component) 1.0 mg/dL (0.6-1.3); Estimated Creatinine Clearance 61.0 mL/min (>60); Globulin 2.2 gm/dL (2.3-3.5); Glucose 154 mg/dL (74-106); Magnesium 1.7 mg/dL (1.6-2.6); Osmolality,Calculated 286 (275-295); Phosphorous 3.2 mg/dL (2.4-5.1); Potassium 4.4 mMol/L (3.4-5.1); Sodium 142 mMol/L (136-145); Total Protein 6.1 gm/dL (5.7-8.2); eGFR > 60 See Note
[2024-11-11] MEDS: PRIMIDONE 50 MG TABLET PO (09:46)
--- NOTE | 2024-11-11 15:48 | PC.SS ---
Patient is a 84YO male; reason for visit: LOWER GI BLEED W/ HISTORY OF MALIGNANT. Role and purpose of today's contact explained to patient. Patient is Romansh speaking. Patient confirmed his demographic information. Patient stated his primary medical surrogate decisionmaker is his daughter Augustina Foss [phone]. Patient stated he is independent with ADLs and utilizes a cane for ambulation. Pharmacy: [facility]. PCP: Miguel Newell. Discharge plan: Home, family to transport. Next of Kin: Daughter Augustina Foss [phone]
--- NOTE | 2024-11-11 16:21 | SUR.PHASEI ---
1616 patient is sleepy and arousable, breathing unlabored, s/p EGD under IV sedation, report received from Natividad ESPINOSA
--- NOTE | 2024-11-11 16:33 | ESDS_ITS ---
<Statement entered by Isabelle Da Silva DO - 11/11/24 19:32> I, Isabelle Da Silva DO, attest that I was physically present for the hicks portions of the service and evaluated the patient with the resident and I reviewed and discussed the case with the resident and agree with the resident's findings and plans of care as documented above Planned Discharge Date 11/11/24 DS: Providers Provider Date of admission: 11/09/24 16:37 Primary care physician: Physician No Primary/Family Admitting Provider: Sherice Zamudio MD Attending Provider on Admission: Sherice Zamudio MD Consults: 11/09/24 16:56 Consult to Gastroenterology Stat Comment: Consulting Provider: Geronimo Paredes 11/09/24 20:04 Referral Registered Dietitian Routine Comment: Attending Provider on DC: RESIDENT Peter Discharging Provider: RESIDENT Peter DS: Diagnosis Problem List Completed Was Problem List Reviewed/Reconciled?: Yes Hospital Course Hospital Course Hospital course: Patient is a 84 year-old male with past medical history of malignant neoplasm of the ascending colon status post partial resection and anastomosis (not on adjuvant chemo, following Dr. Curtis), prostamegaly status post prostatectomy 2018, inferior wall CT, and history of hemorrhoids who presented to the ED on 11/09/2024 with 4 days of bloody stools. Admitted for workup of lower GI bleed and acute anemia secondary to above. ED Course: Initial vitals: BP 113/69 HR 90 RR 17 temp 97.9 ?F, saturating 97% on room air. Labs significant for WBC 7.3, hemoglobin 12.4, BUN 26, glucose [address] abdomen pelvis without contrast showed diffuse rectal wall thickening, suspicious for proctitis or rectal tumor. Patient was admitted for acute lower GI bleed likely secondary to history of colon cancer. Hosptial Course: Patient received colonoscopy. During colonoscopy, hemorrhoids wre found on perianal exam. Internal hemorrhoids were banded. There was moderate diverticulosis in the sigmoid colon and descending colon but not diverticular bleeding. Right sided ileocolonic anastomosis end to side was normal and no tumors or masses. One large polyp (>1cm) in transverse colon and one medieum (7- 9mm) poly in the sigmoid colon was removed. Patient also received EGD. It showed gastritis with hemorrhage and erythematous duodenopathy. Per GI, melena was due to severe hemorrhagic gastritis and severe duodenitis. Hematochezia was due to internal hemorrhoids bleeding required band ligation in total 3 bands during colonoscopy. #Acute anemia secondary to #Lower GI bleed #history of malignant neoplasm of descending colon status post partial resection and anastomosis #History of hemorrhoids, s/p hemorrhoidectomy #History of hypertension #Peripheral edema #Venous stasis #History of pulmonary nodules #BPH #History of Parkinson disease #Type 2 diabetes Instructions: Follow up with Gi Technician Dr Paredes with in 2 weeks of discharge from hospital, need colonoscopy in 2 years. Followup pathology results from biopsy. Use high fiber diet and stool softeners. Follow up with Primary care physician with labs within 3-5 days of discharge. If symptoms persist or worsen, return to the Emergency Department. Consulte con el gastroenter?logo Dr. Paredes dentro de las 2 semanas posteriores al cheryl hospitalaria. Necesitar? soco colonoscopia dentro de los 2 a?os. Se realizar?n los resultados de la biopsia para el seguimiento patol?gico. Siga soco dieta tobias en fibra y utilice ablandadores de heces. Consulte con ball m?dico de cabecera para realizar an?lisis de laboratorio dentro de los 3 a 5 d?as posteriores al cheryl. Si los s?ntomas persisten o empeoran, regrese a Urgencias. Safe to discharge to Home Assessment and plan discussed with my attending physician Dr. Rekha Meyers (PGY-1)- Internal medicine resident Time Spent with Patient Time attestation: Total time spent providing and/or coordinating discharge services: Time spent: Greater than 30 minutes Exam Vital Signs Temp Pulse Resp BP Pulse Ox O2 Del Method O2 Flow Rate 97.5 F 75 13 112/54 L 95 Room Air 3 11/11/24 16:16 11/11/24 16:26 11/11/24 16:26 11/11/24 16:26 11/11/24 16:26 11/11/24 16:00 11/11/24 16:05 Narrative Exam General: Awake and in no acute distress. Conversational and non-toxic appearing. Mild tremors in bilateral upper extremities at baseline. HEENT: Normocephalic, atraumatic, mucous membranes moist. Heart: Regular rate and rhythm, normal S1 and S2, no murmurs. Lungs: Clear to auscultation with no wheezing or crackles. Abdomen: Soft, nondistended, nontender, positive bowel sounds. No guarding or rebound tenderness. Neurologic: Alert and oriented x3, no gross neurological deficit, and patient able to move all 4 extremities. Extremities: 2+ pitting lower extremity edema bilaterally. Skin: No rash or ecchymoses. Discoloration of lower extremities, likely stasis dermatitis or chronic venous insufficiency. Discharge Plan Plan Patient Disposition: HOME (Self Care) Care Plan Goals: Follow up with Gi Technician Dr Paredes with in 2 weeks of discharge from hospital, need colonoscopy in 2 years. Followup pathology results from biopsy. Use high fiber diet and stool softeners. Follow up with Primary care physician with labs within 3-5 days of discharge. If symptoms persist or worsen, return to the Emergency Department. Consulte con el gastroenter?logo Dr. Paredes dentro de las 2 semanas posteriores al cheryl hospitalaria. Necesitar? soco colonoscopia dentro de los 2 a?os. Se realizar?n los resultados de la biopsia para el seguimiento patol?gico. Siga soco dieta tobias en fibra y utilice ablandadores de heces. Consulte con ball m? dico de cabecera para realizar an?lisis de laboratorio dentro de los 3 a 5 d?as posteriores al cheryl. Si los s?ntomas persisten o empeoran, regrese a Urgencias. Prescriptions/Referrals Prescriptions/Med Rec: New docusate calcium [Stool Softener (docusate mir)] 240 mg capsule 240 mg PO QDAY Qty: 30 0RF pantoprazole [Protonix] 40 mg tablet,delayed release (DR/EC) 40 mg PO QDAY Qty: 30 0RF Continued lisinopril 2.5 mg tablet 2.5 mg PO DAILY primidone 50 mg Tablet 50 mg PO BID magnesium glycinate 100 mg magnesium capsule 240 mg PO QDAY cholecalciferol (vitamin D3) 50 mcg (2,000 unit) capsule 2,000 unit PO QDAY atorvastatin 10 mg tablet 10 mg PO QDAY furosemide 40 mg tablet 40 mg PO QAM Calcium 1200 mg + Vitamin D3 25 mcg capsule 1,200 mg PO .daily with meal Referrals: Geronimo Paredes MD [Physician] - (f/u from hospital, biopsy results, 2x polyp colon. ) No Primary/Family,Physician [Primary Care Provider] - Patient/Caregiver Discharge Instructions Education Materials: Colorectal Cancer Screening Print Language: Italian Activity Restrictions/Additional Instructions: PER DR. PAREDES, PT MAY BE DISCHARGED HOME ON PROTONIX 40MG, TAKE 1 TABLET BY MOUTH ONCE DAILY. AVOID NSAIDS. Seg?n el Dr. Paredes, el paciente puede recibir el cheryl con Protonix 40 mg. [place] soco tableta oral soco vez al d?a. Evite los [place]. Stand Alone Forms: Mae Award Info., Patient Portal Info Letter Discharge Order Discharge Orders: Discharge (Routine); Ordered 11/11/24 Ordered By: Shayla Browning Quality Discharge Quality Measures VTE prophylaxis
--- NOTE | 2024-11-11 16:46 | SUR.PHASEI ---
[id number] patient is awake, alert, breathing unlabored report given to Yaquelin ESPINOSA, patient transferred back to room 370 with tele box
[2024-11-11 20:16] LABS: Carcinoembryonic Antigen 1.4 ng/mL (0.0-5.0)
== END 2024-11-11 18:15 | disposition home or self-care (01) | DRG 378 ==
LOC: SERX 15:36 → SERHOLD 17:07 → S3SX 19:20
PROVIDERS: Nurse Practitioner Family; Specialist; Admitting Provider Internal Medicine; Emergency Provider Emergency Medicine; Visit Provider Internal Medicine
PROC: 0DJD8ZZ Inspection of Lower Intestinal Tract, Via Natural or Artificial Opening Endoscopic (ICD-10-PCS; CPT 45378; principal; 2024-11-10 14:45)
PROC: 0DB48ZX Excision of Esophagogastric Junction, Via Natural or Artificial Opening Endoscopic, Diagnostic (ICD-10-PCS; CPT 43239; principal; 2024-11-11 15:30)
DX: K29.71 Gastritis, unspecified, with bleeding (principal); D62 Acute posthemorrhagic anemia; K31.89 Other diseases of stomach and duodenum; E11.9 Type 2 diabetes mellitus without complications; I10 Essential (primary) hypertension; K29.80 Duodenitis without bleeding; K64.8 Other hemorrhoids; N40.0 Benign prostatic hyperplasia without lower urinary tract symptoms; Z90.79 Acquired absence of other genital organ(s); Z85.038 Personal history of other malignant neoplasm of large intestine; G20.A1 Parkinson's disease without dyskinesia, without mention of fluctuations; I87.8 Other specified disorders of veins; K57.31 Diverticulosis of large intestine without perforation or abscess with bleeding; I20.9 Angina pectoris, unspecified; R91.8 Other nonspecific abnormal finding of lung field
CPT/HCPCS: 36415; 74176; 80053; 80061; 81001; 82378; 83036; 83690; 83735; 84100; 85025; 85610; 85730; 86850; 86900; 86901; 87086; 93225; 96374; 96376; A4649; J1200; J2250; J2470; J3010; A9270

== ENCOUNTER → 2024-12-27 | Outpatient (CLI) | payer MEDICARE, MEDICAID, SELFPAY ==
[2024-12-27 12:37] LABS: Basophils # (Auto) 0.0 Thou/mm3 (0.0-0.2); Basophils % (Auto) 1 % (0-2.5); Eosinophils # (Auto) 0.1 Thou/mm3 (0.0-0.5); Eosinophils % (Auto) 1 % (0-10); Hematocrit 41.4 % (41.0-53.0); Hemoglobin 13.9 g/dL (13.5-16.0); Immature Granulocytes Auto 0.02 Thou/mm3 (0.00-0.00); Lymphocytes # (Auto) 1.3 Thou/mm3 (1.0-4.8); Lymphocytes % (Auto) 22 % (10-50); Mean Corpuscular HGB Conc 33.6 g/dl (31.0-37.0); Mean Corpuscular Hemoglobin 32.8 pg (25.0-35.0); Mean Corpuscular Volume 98 fL (80-100); Monocytes # (Auto) 0.6 Thou/mm3 (0.0-0.8); Monocytes % (Auto) 10 % (0-12); Neutrophils # (Auto) 3.8 Thou/mm3 (1.8-7.7); Neutrophils % (Auto) 66 % (37-80); Nucleated Red Blood Cell # 0.00 Thou/mm3 (0.00-0.00); Nucleated Red Blood Cell % 0 /100 WBC (0); Platelet Count 218 Thou/mm3 (140-440); RDW Standard Deviation 46.9 fL (35.1-43.9); Red Blood Count 4.24 Miln/mm3 (4.50-5.90); White Blood Count 5.8 Thou/mm3 (3.8-10.6)
[2024-12-27 12:56] LABS: Prostate Specific Antigen 0.99 ng/mL (0-4.00)
[2024-12-27 12:57] LABS: Alanine Aminotransferase 11 U/L (10-49); Albumin, Serum 4.3 gm/dL (3.4-4.8); Albumin/Globulin Ratio 2.0 (1.2-2.2); Alkaline Phosphatase 71 U/L (46-116); Anion Gap 8 (7-16); Aspartate Amino Transferase 17 U/L (0-34); BUN/Creatinine Ratio 13 Ratio (12-20); Bilirubin,Total 0.5 mg/dL (0.3-1.2); Blood Urea Nitrogen 12 mg/dL (9-23); Calcium 10.3 mg/dL (8.3-10.6); Calcium (Corrected) 10.3 mg/dL (8.5-10.1); Carbon Dioxide 28.6 mMol/L (20.0-31.0); Chloride 102 mMol/L (98-107); Creatinine (Component) 0.9 mg/dL (0.6-1.3); Globulin 2.1 gm/dL (2.3-3.5); Glucose 164 mg/dL (74-106); Osmolality,Calculated 281 (275-295); Potassium 4.2 mMol/L (3.4-5.1); Sodium 139 mMol/L (136-145); Total Protein 6.4 gm/dL (5.7-8.2); eGFR > 60 See Note
[2024-12-27 12:59] LABS: Carcinoembryonic Antigen 1.2 ng/mL (0.0-5.0)
== END | disposition home or self-care (01) ==
LOC: COPL 11:28
PROVIDERS: PCP Family Medicine; Referring Provider Nurse Practitioner Family; Visit Provider Nurse Practitioner Family
DX: C18.2 Malignant neoplasm of ascending colon (principal)
CPT/HCPCS: 36415; 80053; 82378; 84153; 85025

== ENCOUNTER 2025-01-01 15:07 | Outpatient (RCR) | payer MEDICARE, MEDICAID, SELFPAY ==
--- NOTE | 2025-01-01 15:37 | CTCFLWUP_ITS ---
Patient: {PatientDes} : {Admin.Birth_Date} MRN: {Ident.TRISH} Page 2 of 5 FOLLOW UP NOTE DATE OF SERVICE: 01/01/2025 NAME: {Isak} MRN: {Aman} ACCOUNT: [id number] : {Admin.Birth_Date} AGE: {Admin.Age} INTERVAL HISTORY: Patient is doing well with no new complaints CT of chest that was done for surveillance due to history of pulmonary nodules showed no new pulmonary nodules, 05/30/2024. Labs from 05/23/2024 show PSA 0.91,. Patient had EGD and colonoscopy and showed no cancer. Patient was found to have hemorrhagic gastritis as well as hemorrhoids. GI following patient and recommended colonoscopy in 2 years. 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 Right distal thigh mass. Aspiration biopsy no evidence of adenocarcinoma (06/28/2018). Prostatomegaly status post robotic simple prostatectomy (10/23/2018). Pathology showed benign prostatic hyperplasia. History of Parkinson's disease. 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 Patient reportedly had colonoscopy done by Dr. Cruz. The report is not available to me at this time. CT scan showed a soft tissue density at the posterior margin of the cecum measuring 5.1 x 4.2 cm in size without any evidence of bowel obstruction. On September 16, 2017 patient underwent right hemicolectomy and ileotransverse colostomy. Pathology specimen showed a 3.5 x 3.0 x 1.0 well differentiated adenocarcinoma of the right colon invading through the muscularis propria into pericolonic tissue. Lymphovascular invasion was present. No perineural invasion was identified. One tumor deposit was noted. 2 out of 25 lymph nodes were positive for metastatic disease. It was staged as PT 3, N1B disease. His posto perative course was uneventful. He is referred to medical oncology for further care. 12/16/2017: Patient had a PET CT scan which showed a focal 18 mm hypermetabolic focus in the rectum. 12/19/2017: CT scan of the chest abdomen and pelvis with IV contrast showed a masslike area 4 cm in size in the mid transverse colon. 02/14/2018: He has recovered very well from the surgery. He is going on vacation today. He will be back in about 3 weeks. 05/11/2018: He decided not to have adjuvant chemo 06/28/2018: Patient had CT-guided percutaneous biopsy/aspiration of soft tissue mass in the right thigh. Pathology did not show any evidence of adenocarcinoma. 10/11/2018: Patient had prostatectomy done at [facility] by Dr. Ren. Pathology showed BPH. 05/08/2018: CEA 1.5. 07/11/2019: CEA 2.2 08/07/2019: CT scan of the chest abdomen and pelvis with contrast? 12/27/2019: CEA 1.8. 05/14/2020: CEA 1.9. 10/13/2020: CT scan of the chest abdomen and pelvis with IV contrast did not show any evidence of metastatic disease 05/19/2021: CEA 1.7. 10/12/2021: CEA 1.3. 03/22/2022: CEA 1.2. 09/07/2022: CT scan of the chest abdomen and pelvis with IV contrast 04/06/2023: CEA 1.3. 05/03/2023: CEA 2.3 05/09/2023: CT of chest abdomen and pelvis with contrast 10/13/2023: CEA 1.3, PSA 0.80 10/14/2023: CT chest with no contrast 01/16/2024: CEA 1.9, PSA 1.05 OTHER MEDICAL HISTORY/CONDITIONS: Parkinson's Diabetes Hypertension FAMILY HISTORY: SOCIAL HISTORY: MEDICATIONS: 1. atorvastatin - 10 mg 1 tab Daily 2. furosemide - 40 mg 1 tab Daily 3. Jardiance - 25 mg 1 tab Daily 4. lisinopril - 2.5 mg 1 tab Daily 5. primidone - 50 mg 1 tab Twice a Day 6. Tylenol Ex Str Arthritis Pain - 500 mg 1 tab As needed Medications Last Reconciled by Rowena Hernández MA on 09/20/2024 (Reconcile on Approval: ?) ALLERGIES: No Known Drug Allergies REVIEW OF SYSTEMS: A complete 14-point review of systems was performed and is negative except as noted in interval history. PHYSICAL EXAMINATION: VITAL SIGNS: PAIN: None ECOG Performance Status: 0 - Asymptomatic and fully active : 10 - Worst possible pain Neuro: Alert and oriented x 4 Conjunctive is white. CV: Not examined Respiratory: Even unlabored respirations. Extremities: no cyanosis. LABORATORY DATA: I have personally reviewed and interpreted each of the patient?s relevant lab tests, abnormal findings are below: Date 11/11/24 12/27/24 ??WHITE?BLOOD?COUNT?(Thou/mm3) ? 5.8 ??RED?BLOOD?COUNT?(Miln/mm3) ? 4.24?L ??HEMOGLOBIN?(gm/dl) ? 13.9 ??HEMATOCRIT?(%) ? 41.4 ??PLATELET?COUNT?(Thou/mm3) ? 218 ??NEUTROPHILS?%,?AUTO?(%) ? 66 ??LYMPH?%,?AUTO?(%) ? 22 ??NEUTROPHILS,?AUTO?(Thou/mm3) ? 3.8 ??GLUCOSE,RANDOM?(mg/dL) 154?H 164?H ??BLOOD?UREA?NITROGEN?(mg/dL) 13 12 ??CREATININE?(mg/dL) 1.00 0.90 ??SODIUM?(mmol/L) 142 139 ??POTASSIUM?(mmol/L) 4.4 4.2 ??CHLORIDE?(mmol/L) 104 102 ??CrCl?(CandG)?(ml/min) 59.76 66.40 ??AST/SGOT?(Unit/L) 23 17 ??ALT/SGPT?(Unit/L) 17 11 ??ALKALINE?PHOSPHATASE?(Unit/L) 57 71 ??BILIRUBIN,?TOTAL?(mg/dL) 0.7 0.5 ??PROTEIN?TOTAL?(gm/dl) 6.1 6.4 ??ALBUMIN,?SERUM?(gm/dl) 3.9 4.3 ??GLOBULIN?(gm/dl) 2.2?L 2.1?L ??ALBUMIN/GLOBULIN?RATIO 1.8 2.0 ??CALCIUM,?SERUM?(mg/dL) 8.7 10.3 ??CALCIUM?SERUM?(CORRECTED)?(mg/dL) 8.8 10.3?H ??CEA?(O*)?(ng/ml) ? 1.2 ASSESSMENT/PLAN: 1. 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 Mr. Szymanski declined adjuvant chemotherapy. Right distal thigh mass. Aspiration biopsy no evidence of adenocarcinoma (06/28/2018). Prostatomegaly status post robotic simple prostatectomy (10/23/2018). Pathology showed benign prostatic hyperplasia. PSA level is 0.91, 05/23/2024. History of Parkinson's disease. Denies any complaints, reports good appetite. Stable pulmonary nodule left upper lobe, 4 mm, CT chest without contrast 10/14/2023. CT of chest abdomen and pelvis with IV contrast done on 05/09/2023 shows 2 mm right lung nodule, 4 mm left lung nodule, prostate irregular in contour transverse dimension 4.4 cm, recommend correlation with PSA, recommend 6-month follow-up CT chest without contrast. CT of chest done on 05/30/2024 showed no new pulmonary nodules . Denies any complaints, reports good appetite, energy levels, denies cough, denies weight loss. EGD and colonoscopy do not reveal any cancer. Patient found to have hemorrhoids as well as hemorrhagic gastritis Patient is having fatigue and tiredness As per son patient snores and is not able to lie flat Patient mostly sleeps and prop himself up Patient noticed to be snoring most of the time Feeling very tired and fatigued never refreshed in the morning Patient frequently naps in the daytime Will do sleep study to evaluate for obstructive sleep apnea RTC in 6 months Advised to follow-up with the primary care to follow-up on the sleep study ORDERS: Order # Description [id number] Comprehensive Metabolic Panel - 12 + CBC with Auto Diff + CEA [id number] Follow Up 6 Month RETURN TO CLINIC: I reviewed the diagnosis, prognosis, and recommended treatment/procedure options with the patient (and/or their legal sales account representative), including the potential benefits, risks, side effects and alternative therapies. We also discussed the option of no treatment and the possibility of clinical trial participation, if applicable. All questions were addressed, and they demonstrated understanding. They provided informed consent to proceed with the proposed plan of care. BILLING AND COMPLIANCE: I reviewed external records from providers outside my specialty as summarized above. I spent a total of 50 minutes on this patient?s care on the day of their visit excluding time spent related to any billed procedures. This time includes time spent with the patient as well as time spent documenting in the medical record, reviewing patients records and tests, obtaining history, placing orders, communicating with other healthcare professionals, counseling the patient, family or caregiver, and/or care coordination for the diagnoses above. Electronically Signed by: Tej Curtis MD T: 3:34 PM CC: Dao?Chau?, Sean?Shemar? PCP: {Admin.Pri_MD_ID*[email or web address]@} Referring: {Admin.Ref_MD_ID*[email or web address]@} This document was completed utilizing speech recognition software. Grammatical errors, random word insertions, pronoun errors, and incomplete sentences are an occasional consequence of this system due to software limitations, ambient noise, and hardware issues. Any formal questions or concerns about the content, text or information contained within the body of this dictation should be directly addressed to the provider for clarification.
== END 2025-01-29 23:59 | disposition home or self-care (01) ==
LOC: SCTC 15:07
PROVIDERS: PCP Family Medicine; Referring Provider Family Medicine; Visit Provider Internal Medicine Hematology & Oncology
DX: C18.2 Malignant neoplasm of ascending colon (principal); N40.0 Benign prostatic hyperplasia without lower urinary tract symptoms; Z90.79 Acquired absence of other genital organ(s); G20.A1 Parkinson's disease without dyskinesia, without mention of fluctuations; R91.1 Solitary pulmonary nodule; K64.9 Unspecified hemorrhoids; K29.71 Gastritis, unspecified, with bleeding; R53.83 Other fatigue; R06.83 Snoring
CPT/HCPCS: 99212; G0463